=== PATIENT | male | born 1980 | race Caucasian/White ===

== ENCOUNTER 2018-10-22 02:51 | Emergency (ER) | payer BC ==
[~2018-10-22] VITALS: Ht 185.4 cm; Wt 106.5 kg
[2018-10-22] MEDS ORDERED: FAMOTIDINE 20 MG TABLET ONE (03:20)
[2018-10-22] MEDS ORDERED: MAALOX/HYOSCYAMINE/LIDOCAINE 45 ML BTL ONE (03:20)
--- NOTE | 2018-10-22 03:26 | NUR ---
PT. C/O EPIGASTRIC PAIN WORSE OVER THE LAST 6 MONTHS BUT "THE WORST IT'S EVER BEEN TONIGHT". PT. DENIES N/V/D. REPORTS LACK OF APPETITE R/T PAIN. EKG DONE IN TRIAGE. PT. C/O MILD SOB. NSR NOTED ON MONITOR. CALL LIGHT IN REACH. MEDICATED PER APR. DENIES OTHER NEEDS.
[2018-10-22 03:29] LABS: BASOPHILS # (AUTO) 0.01 x10^3/uL (0-0.1); BASOPHILS % (AUTO) 0 % (0-1); EOSINOPHILS # (AUTO) 0.19 x10^3/uL (0-0.4); EOSINOPHILS % (AUTO) 3 % (1-7); LYMPHOCYTES # (AUTO) 0.96 x10^3/uL (1-3.4); LYMPHOCYTES % (AUTO) 14 % (22-44); MD NO; MEAN CORPUSCULAR HEMOGLOBIN 34.3 pg (27.5-34.5); MEAN CORPUSCULAR HGB CONC 34.6 g/dL (33.2-36.2); MEAN CORPUSCULAR VOLUME 99.1 fL (81-97); MEAN PLATELET VOLUME 8.5 fL (7.4-10.4); MONOCYTES % (AUTO) 11 % (2-9); NEUTROPHILS # (AUTO) 4.82 x10^3/uL (1.8-6.8); NEUTROPHILS % (AUTO) 72 % (42-75); PLATELET COUNT 241 x10^3/uL (130-400); RED BLOOD COUNT 5.42 x10^6/uL (4.38-5.82); RED CELL DISTRIBUTION WIDTH 12.6 % (9.4-14.8)
[2018-10-22] MEDS ORDERED: FAMOTIDINE 20 MG TABLET PO ONE (03:30)
[2018-10-22] MEDS ORDERED: MAALOX/HYOSCYAMINE/LIDOCAINE 45 ML BTL PO ONE (03:30)
[2018-10-22 03:38] LABS: ALANINE AMINOTRANSFERASE 105 U/L (12-78); ALBUMIN 3.8 g/dL (3.4-5.0); ANION GAP 9 mmol/L (5-15); CALCIUM 8.8 mg/dL (8.5-10.1); CHLORIDE 105 mmol/L (98-107); CREATININE 1.32 mg/dL (0.7-1.3)
[2018-10-22 03:43] LABS: ALKALINE PHOSPHATASE 68 U/L (45-117); BILIRUBIN,TOTAL 1.3 mg/dL (0.2-1.0); TOTAL PROTEIN 7.4 g/dL (6.4-8.2); TROPONIN I < 0.015 ng/mL (0.000-0.045)
--- NOTE | 2018-10-22 04:15 | NUR ---
PT. REPORTS PAIN IS "GONE" AT THIS TIME. B/P IMPROVED. US CALLED AND COMING TO GET PT NOW. PT. DENIES NEEDS.
[2018-10-22 05:27] VITALS: BP 159/102
== END 2018-10-22 05:40 ==
LOC: ED 05:34
DX: R10.13 Epigastric pain (principal); I10 Essential (primary) hypertension; R06.02 Shortness of breath; F17.210 Nicotine dependence, cigarettes, uncomplicated
CPT/HCPCS: 36415; 71045; 76700; 80053; 83690; 84484; 85025; 93005; 99284